=== PATIENT | female | born 1985 | race Caucasian/White ===

== ENCOUNTER 2018-02-14 14:29 | Emergency (ER) | payer MEDICAID, OTHER ==
[2018-02-14 14:44] VITALS: BP 124/82
--- NOTE | 2018-02-14 15:06 | UC ---
Skin Complaint HPI - HPI Summary HPI Summary: 32 y/o female noted while cleaning a bathroom 02/12 tuoched nose with industrial cleaner, noted that since she had painful, red nose with drainage since. no prior PMH, no prior episodes. - History of Current Complaint Chief Complaint: UCBurn Time Seen by Provider: 02/14/18 14:49 Stated Complaint: NOSE (BURN) Hx Obtained From: Patient Hx Last Menstrual Period: 2 wks ago ?: No Onset/Duration: Sudden Onset, Lasting Days Skin Exposure Onset/Duration: Days Ago Onset Severity: Mild Current Severity: Moderate Pain Intensity: 8 Pain Scale Used: 0-10 Numeric - Allergy/Home Medications Allergies/Adverse Reactions: Allergies Allergy/AdvReac Type Severity Reaction Status Date / Time amoxicillin Allergy Swelling Verified 02/14/18 14:45 Of Face,Lips,& Throat Penicillins Allergy Swelling Verified 02/14/18 14:45 Of Face,Lips,& Throat Sulfa (Sulfonamide Allergy Hives Verified 02/14/18 14:45 Antibiotics) Review of Systems All Other Systems Reviewed And Are Negative: Yes Skin: Positive: Rash, Other - drainage PMH/Surg Hx/FS Hx/Imm Hx Previously Healthy: Yes - Surgical History Surgical History: Yes Surgery Procedure, Year, and Place: [place]. c section x 2. tonsils and adenoids. TUBAL LIGATION - Family History Known Family History: Positive: Cardiac Disease - Social History Alcohol Use: Rare Substance Use Type: None Smoking Status (MU): Heavy Every Day Tobacco Smoker Type: Cigarettes Amount Used/How Often: 1 PPD Length of Time of Smoking/Using Tobacco: on and off since age 16 Have You Smoked in the Last Year: Yes Household Exposure Type: Cigarettes - Immunization History Most Recent Influenza Vaccination: declines Most Recent Tetanus Shot: 10/11/13 Most Recent Pneumonia Vaccination: n/a Physical Exam Triage Information Reviewed: Yes Appearance: Well-Appearing, No Pain Distress, Well-Nourished Vital Signs: Initial Vital Signs Temp 97.0 F 02/14/18 14:41 Pulse 80 02/14/18 14:41 Resp 18 02/14/18 14:41 BP 124/82 02/14/18 14:41 Pulse Ox 100 02/14/18 14:41 Neurological Exam: Normal Skin: Positive: Rashes, Breakdown, Other - yellow honey colored crusting over tip of nose, TTP, nares open, no erythema, drainage in nares. no LAD, streaking. Course/Dx - Differential Diagnoses - Skin Complaint Differential Diagnoses: Cellulitis, Contact Dermatitis, Urticaria, Varicella Zoster, Viral Exanthem - Diagnoses Provider Diagnoses: impetigo Discharge - Sign-Out/Discharge Documenting (check all that apply): Patient Departure All imaging exams completed and their final reports reviewed: No Studies - Discharge Plan Condition: Good Disposition: HOME Prescriptions: Clindamycin HCl 150 mg PO QID #28 capsule Mupirocin 2% OINT* [Bactroban 2 % Oint*] 1 applic TOPICAL BID #1 tube Patient Education Materials: Impetigo (ED) Referrals: No Primary Care Phys,NOPCP [Primary Care Provider] - Additional Instructions: - OK to shower, wash area with water or with gentle baby soap - Antibiotic ointment twice daily - ANtibiotics as prescribed - Return if no improvement within 1-2 days or for worsening symptoms - Billing Disposition and Condition Condition: GOOD Disposition: Home
== END 2018-02-14 15:08 | disposition home or self-care (01) ==
LOC: UCEAST 14:29
DX: L01.00 Impetigo, unspecified (principal); F17.210 Nicotine dependence, cigarettes, uncomplicated; Z88.0 Allergy status to penicillin; Z88.2 Allergy status to sulfonamides
CPT/HCPCS: 99212; G0463